=== PATIENT | female | born 1955 | race Hispanic/Latino ===

== ENCOUNTER 2020-05-14 11:37 | Inpatient (IN) | payer MEDICAID, OTHER ==
[~2020-05-14] VITALS: Ht 154.9 cm; Wt 87.9 kg
[2020-05-14 12:08] LABS: BASOPHILS % (AUTO) 0.4 % (0.0-5.0); EOSINOPHILS % (AUTO) 3.4 % (0.0-8.0); HEMATOCRIT 36.5 % (36-48); LYMPHOCYTES % (AUTO) 38.6 % (21.0-51.0); MEAN CORPUSCULAR HEMOGLOBIN 30.2 pg (27.0-33.0); MEAN CORPUSCULAR HGB CONC 33.7 g/dL (32.0-36.0); MEAN CORPUSCULAR VOLUME 89.7 fL (79-99); NEUTROPHILS % (AUTO) 51.4 % (40.0-77.0); PLATELET COUNT (AUTO) 157 K/uL (130-400); RED BLOOD CELL COUNT(AUTO) 4.07 MIL/uL (4.00-5.50); RED CELL DISTRIBUTION WIDTH 12.2 % (11.0-15.5); WHITE BLOOD COUNT (AUTO) 4.7 K/uL (4.8-10.8)
[2020-05-14 12:22] LABS: INR 1.03 (0.85-1.15); PROTHROMBIN TIME 11.2 SEC (9.6-11.6)
[2020-05-14] MEDS ORDERED: MAG/ALUM/SIMETH 30 ML UDCUP ONE (12:29)
[2020-05-14] MEDS ORDERED: LIDOCAINE HCL 2% VISCOUS 15 ML UDCUP ONE (12:29)
[2020-05-14] MEDS ORDERED: ASPIRIN 325 MG TABLET ONE (12:30)
[2020-05-14] MEDS ORDERED: ONDANSETRON 4MG INJ ONE (12:30)
[2020-05-14] MEDS ORDERED: MORPHINE 4 MG SYG ONE (12:30)
[2020-05-14] MEDS ORDERED: NITROGLYCERIN 0.4 MG SL TAB SL ONE ×2 (12:34→16:50)
[2020-05-14 12:37] LABS: CREATINE KINASE, TOTAL 189 U/L (21-232); CREATININE 0.6 mg/dL (0.5-1.5); LIPASE 85 U/L (114-286); POTASSIUM 3.9 mmol/L (3.5-5.1)
[2020-05-14 12:46] LABS: ALBUMIN 3.8 g/dL (3.5-5.0); BILIRUBIN,TOTAL 0.5 mg/dL (0.2-1.0); TOTAL PROTEIN, SERUM 7.5 g/dL (6.0-8.3)
[2020-05-14] MEDS ORDERED: ACETAMINOPHEN 325 MG TAB PO PRN ×2 (14:00)
[2020-05-14] MEDS ORDERED: LACTULOSE 20 GM/30 ML UDCUP PO PRN (14:00)
[2020-05-14] MEDS ORDERED: ONDANSETRON 4MG INJ IV PRN (14:00)
[2020-05-14] MEDS ORDERED: NITROGLYCERIN 0.4 MG SL TAB SL PRN (14:00)
[2020-05-14] MEDS ORDERED: MORPHINE 2 MG SYG IV PRN (14:00)
[2020-05-14 14:17] LABS: HEMOGLOBIN A1C 7.8 % (4.0-6.0)
[2020-05-14 14:28] LABS: THYROID STIMULATING HORMONE 1.86 uIU/mL (0.36-3.74)
[2020-05-14] MEDS: INSULIN HUMULIN R 100 UNIT/ML 3ML SQ SCH ×2 (16:30→21:00)
[2020-05-14] MEDS ORDERED: MORPHINE 2 MG SYG ONE (16:45)
[2020-05-14] MEDS: METOPROLOL TARTRATE 25 MG TAB PO SCH (21:00)
[2020-05-14] MEDS: FAMOTIDINE 20MG TAB PO SCH (21:00)
[2020-05-14] MEDS: ATORVASTATIN 20 MG TABLET PO SCH (21:00)
[2020-05-14 21:09] LABS: APPEARANCE,URINE Clear (CLEAR); BILIRUBIN,URINE Negative (NEGATIVE); COLOR,URINE Yellow (YELLOW); GLUCOSE, URINE (UA) Negative (NEGATIVE); KETONES,URINE Negative (NEGATIVE); LEUKOCYTE ESTERASE ,URINE Negative (NEGATIVE); NITRATE,URINE Negative (NEGATIVE); OCCULT BLOOD,URINE Negative (NEGATIVE); PROTEIN,URINE Negative (NEGATIVE)
[2020-05-14] MEDS ORDERED: FAMOTIDINE 20MG TAB ONE (22:01)
[2020-05-14] MEDS ORDERED: ATORVASTATIN 20 MG TABLET ONE (22:01)
[2020-05-15] MEDS ORDERED: PROCHLORPERAZINE 10MG/2ML INJ ONE (02:17)
[2020-05-15 06:05] LABS: BASOPHILS % (AUTO) 0.2 % (0.0-5.0); EOSINOPHILS % (AUTO) 3.5 % (0.0-8.0); HEMATOCRIT 35.1 % (36-48); LYMPHOCYTES % (AUTO) 38.4 % (21.0-51.0); MEAN CORPUSCULAR VOLUME 90.7 fL (79-99); MONOCYTES % (AUTO) 7.2 % (3.0-13.0); NEUTROPHILS % (AUTO) 50.5 % (40.0-77.0); PLATELET COUNT (AUTO) 143 K/uL (130-400); RED BLOOD CELL COUNT(AUTO) 3.87 MIL/uL (4.00-5.50); RED CELL DISTRIBUTION WIDTH 12.4 % (11.0-15.5)
[2020-05-15 06:29] LABS: CREATININE 0.6 mg/dL (0.5-1.5); POTASSIUM 3.8 mmol/L (3.5-5.1)
[2020-05-15] MEDS: INSULIN HUMULIN R 100 UNIT/ML 3ML SQ SCH ×4 (07:30→21:00)
[2020-05-15] MEDS ORDERED: ASPIRIN 81MG CHEW TAB ONE (07:43)
[2020-05-15] MEDS ORDERED: METOPROLOL TARTRATE 25 MG TAB ONE ×3 (07:44→20:22)
[2020-05-15] MEDS ORDERED: FAMOTIDINE 20MG TAB ONE ×3 (07:44→20:21)
[2020-05-15] MEDS ORDERED: ENOXAPARIN SODIUM 40 MG/0.4 ML SYRINGE SQ ONE (07:44)
[2020-05-15] MEDS ORDERED: MORPHINE 2 MG SYG ONE (07:53)
[2020-05-15] MEDS ORDERED: ONDANSETRON 4MG INJ ONE (07:53)
[2020-05-15] MEDS: FAMOTIDINE 20MG TAB PO SCH ×2 (09:00→21:00)
[2020-05-15] MEDS: METOPROLOL TARTRATE 25 MG TAB PO SCH ×2 (09:00→21:00)
[2020-05-15] MEDS: ENOXAPARIN SODIUM 40 MG/0.4 ML SYRINGE SQ SCH (09:00)
[2020-05-15] MEDS: ASPIRIN 325 MG TABLET PO SCH (09:00)
[2020-05-15] MEDS ORDERED: ACETAMINOPHEN 325 MG TAB ONE (12:13)
[2020-05-15] MEDS ORDERED: INSULIN HUMULIN R 100 UNIT/ML 3ML ONE ×2 (12:14→17:26)
[2020-05-15] MEDS ORDERED: ATORVASTATIN 20 MG TABLET ONE ×2 (20:19→20:21)
[2020-05-15] MEDS: ATORVASTATIN 20 MG TABLET PO SCH (21:00)
[2020-05-16 00:52] VITALS: BP 122/38
[2020-05-16 04:34] VITALS: BP 109/42
[2020-05-16] MEDS: INSULIN HUMULIN R 100 UNIT/ML 3ML SQ SCH ×4 (05:48→19:53)
[2020-05-16 06:11] LABS: BASOPHILS % (AUTO) 0.2 % (0.0-5.0); EOSINOPHILS % (AUTO) 2.9 % (0.0-8.0); HEMATOCRIT 38.1 % (36-48); LYMPHOCYTES % (AUTO) 39.6 % (21.0-51.0); MEAN CORPUSCULAR HEMOGLOBIN 30.6 pg (27.0-33.0); MEAN CORPUSCULAR HGB CONC 34.1 g/dL (32.0-36.0); MEAN CORPUSCULAR VOLUME 89.6 fL (79-99); MONOCYTES % (AUTO) 5.9 % (3.0-13.0); NEUTROPHILS % (AUTO) 51.2 % (40.0-77.0); PLATELET COUNT (AUTO) 148 K/uL (130-400); RED BLOOD CELL COUNT(AUTO) 4.25 MIL/uL (4.00-5.50); RED CELL DISTRIBUTION WIDTH 12.2 % (11.0-15.5); WHITE BLOOD COUNT (AUTO) 4.9 K/uL (4.8-10.8)
[2020-05-16 06:20] LABS: CREATININE 0.6 mg/dL (0.5-1.5)
[2020-05-16 08:00] VITALS: BP 121/35
[2020-05-16] MEDS ORDERED: LOSA25TA41 PO (08:00)
[2020-05-16] MEDS ORDERED: METF-527 PO (08:00)
[2020-05-16] MEDS ORDERED: PANT40TA PO (08:00)
[2020-05-16] MEDS ORDERED: GLIP10TA PO (08:01)
[2020-05-16] MEDS ORDERED: GABA-529 PO (08:01)
[2020-05-16] MEDS ORDERED: TRAZ-185 PO (08:03)
[2020-05-16] MEDS ORDERED: NITR0.4T50 SL (08:03)
[2020-05-16] MEDS ORDERED: ISOS30TA92 PO (08:03)
[2020-05-16] MEDS ORDERED: ROSU40TA21 PO (08:03)
[2020-05-16] MEDS ORDERED: ASPIRIN 81 MG EC TAB ONE (08:13)
[2020-05-16] MEDS: METOPROLOL TARTRATE 25 MG TAB PO SCH ×2 (08:19→19:45)
[2020-05-16] MEDS: FAMOTIDINE 20MG TAB PO SCH ×2 (08:20→19:45)
[2020-05-16] MEDS: ENOXAPARIN SODIUM 40 MG/0.4 ML SYRINGE SQ SCH (08:20)
[2020-05-16] MEDS: ASPIRIN 325 MG TABLET PO SCH (09:00)
[2020-05-16] MEDS ORDERED: REGADENOSON 0.4 MG/5 ML PF SYG IVP SCH (10:00)
[2020-05-16 12:00] VITALS: BP 114/47
[2020-05-16 17:00] VITALS: BP 128/57
[2020-05-16] MEDS: ATORVASTATIN 20 MG TABLET PO SCH (19:45)
[2020-05-16 20:16] VITALS: BP 126/47
[2020-05-16] MEDS ORDERED: ASPI-1197 PO (20:39)
[2020-05-16] MEDS ORDERED: TRAZODONE HCL 50 MG TAB PO PRN (20:45)
[2020-05-16] MEDS ORDERED: NITROGLYCERIN 0.4 MG SL TAB SL SCH (20:45)
[2020-05-16] MEDS ORDERED: NON-FORMULARY MEDICATION 1 EACH (Rosuvastatin Calcium 40 MG) PO SCH (21:00)
[2020-05-16] MEDS ORDERED: GABAPENTIN 100 MG CAPSULE PO SCH (21:20)
[2020-05-17] MEDS ORDERED: METFORMIN HCL 500 MG TABLET PO SCH (08:00)
[2020-05-17] MEDS ORDERED: GLIPIZIDE XL 10MG TAB PO SCH (08:00)
[2020-05-17] MEDS ORDERED: PANTOPRAZOLE 40 MG TAB DR PO SCH (09:00)
[2020-05-17] MEDS ORDERED: LOSARTAN 25 MG TABLET PO SCH (09:00)
[2020-05-17] MEDS ORDERED: ISOSORBIDE MONO 30MG SR TAB PO SCH (09:00)
== END 2020-05-16 21:50 | disposition home or self-care (01) | DRG 303 ==
LOC: EDH 11:37 → OBSVTOIN 11:38 → EDHIP 11:38 → 4AH 05-16 00:25
PROVIDERS: ADMIT Family Medicine; ATTEND Family Medicine
DX: I25.110 Atherosclerotic heart disease of native coronary artery with unstable angina pectoris (principal); I10 Essential (primary) hypertension; E11.9 Type 2 diabetes mellitus without complications; E78.5 Hyperlipidemia, unspecified; M19.90 Unspecified osteoarthritis, unspecified site; K21.9 Gastro-esophageal reflux disease without esophagitis; Z90.710 Acquired absence of both cervix and uterus; Z90.49 Acquired absence of other specified parts of digestive tract; Z83.3 Family history of diabetes mellitus; Z82.49 Family history of ischemic heart disease and other diseases of the circulatory system
CPT/HCPCS: 36415; 71045; 78452; 80048; 80053; 80061; 81003; 82550; 82948; 83036; 83690; 83735; 83880; 84443; 84484; 85025; 85610; 85730; 93005; 93017; 96374; A9500; G0378; J0780; J1650; J1815; J2270; J2405; J2785

== ENCOUNTER 2022-03-31 05:44 | Day surgery (SDC) | payer OTHER ==
[2022-03-27 09:02] LABS: BASOPHILS % (AUTO) 0.3 % (0.0-5.0); HEMATOCRIT 36.5 % (36-48); LYMPHOCYTES % (AUTO) 37.6 % (21.0-51.0); MEAN CORPUSCULAR HGB CONC 32.6 g/dL (32.0-36.0); MEAN CORPUSCULAR VOLUME 91.9 fL (79-99); MONOCYTES % (AUTO) 8.9 % (3.0-13.0); NEUTROPHILS % (AUTO) 50.2 % (40.0-77.0); PLATELET COUNT (AUTO) 116 K/uL (130-400); RED BLOOD CELL COUNT(AUTO) 3.97 MIL/uL (4.00-5.50); RED CELL DISTRIBUTION WIDTH 12.3 % (11.0-15.5); WHITE BLOOD COUNT (AUTO) 3.7 K/uL (4.8-10.8)
[2022-03-27 09:12] LABS: INR 0.95 (0.85-1.15); PROTHROMBIN TIME 10.4 SEC (9.6-11.6)
[2022-03-27 09:14] LABS: PARTIAL THROMBOPLASTIN TIME 27.8 SEC (26.3-35.5)
[2022-03-27 09:15] LABS: CREATININE 0.7 mg/dL (0.5-1.5); POTASSIUM 4.4 mmol/L (3.5-5.1)
[2022-03-27 09:16] LABS: APPEARANCE,URINE CLEAR (CLEAR); BILIRUBIN,URINE NEGATIVE (NEGATIVE); COLOR,URINE LIGHT-YELLOW (YELLOW); GLUCOSE, URINE (UA) >=1000 mg/dL (NEGATIVE); KETONES,URINE NEGATIVE (NEGATIVE); LEUKOCYTE ESTERASE ,URINE NEGATIVE Leu/uL (NEGATIVE); NITRATE,URINE NEGATIVE (NEGATIVE); OCCULT BLOOD,URINE NEGATIVE (NEGATIVE); PROTEIN,URINE 10 mg/dL (NEGATIVE); UROBILINOGEN,URINE 0.2 mg/dL (0.2-1.0)
[2022-03-27 09:18] VITALS: BP 143/62
[2022-03-27 09:18] LABS: RBC,URINE 0-1 /HPF (0-1); SQUAMOUS EPITHELIAL CELL,UR FEW /HPF (0-2)
[2022-03-27 09:22] LABS: B-TYPE NATRIURETIC PEPTIDE 10 pg/mL (0-100)
[2022-03-31] VITALS (15 sets, daily range): BP systolic 112–142; BP diastolic 51–64
[~2022-03-31] VITALS: Ht 154.9 cm; Wt 82.5 kg
[~2022-03-31 05:44] MED LIST: 0.9% NACL 500ML IV.SOLN 500 ML IV SCH; ACET-2521 PO; ASPI-1197 PO; BACL20TA PO; CHOL400C9 PO; GABA300C PO; GLIP10TA PO; ISOS30TA92 PO; LOSA25TA41 PO; MELO-108 PO; METF-527 PO; PRAM0.129 PO; ROSU40TA21 PO; invokana PO
[2022-03-31] MEDS ORDERED: 0.9%NACL 1000ML 1,000 ML IV ONE (06:21)
[2022-03-31] MEDS ORDERED: NITROGLYCERIN 50MG VIAL ONE (07:09)
[2022-03-31] MEDS ORDERED: VERAPAMIL HCL 2.5 MG/ML VIAL ONE (07:09)
[2022-03-31] MEDS ORDERED: HEPARIN 10,000 UNIT/10ML (1,000 UNIT/ML) VIAL ONE (07:09)
[2022-03-31] MEDS ORDERED: MIDAZOLAM HCL 1 MG/ML 2ML VIAL ONE ×2 (07:09→07:55)
[2022-03-31] MEDS ORDERED: IOHEXOL 350 MG/ML 100ML INFUS..BTL IV ONE (07:09)
[2022-03-31] MEDS ORDERED: FENTANYL CITRATE PF 50 MCG/1 ML 2ML VIAL ONE (07:10)
[2022-03-31] MEDS ORDERED: LIDOCAINE HCL 400MG/20ML VIAL ONE (07:10)
[2022-03-31] MEDS ORDERED: GLUCAGON 1MG KIT 1 MG ML IM PRN (08:30)
[2022-03-31] MEDS ORDERED: DEXTROSE 50%-WATER 50 ML DISP.SYRIN IV PRN (08:30)
== END 2022-03-31 12:00 | disposition home or self-care (01) ==
LOC: DAH 05:44
PROVIDERS: ATTEND Student in an Organized Health Care Education/Training Program
DX: R07.9 Chest pain, unspecified (principal); I20.8 Other forms of angina pectoris; E11.9 Type 2 diabetes mellitus without complications; I10 Essential (primary) hypertension; E78.5 Hyperlipidemia, unspecified; F20.89 Other schizophrenia; E66.01 Morbid (severe) obesity due to excess calories; Z79.84 Long term (current) use of oral hypoglycemic drugs; Z79.82 Long term (current) use of aspirin; Z79.899 Other long term (current) drug therapy; Z98.890 Other specified postprocedural states; Z68.34 Body mass index [BMI] 34.0-34.9, adult; Z90.49 Acquired absence of other specified parts of digestive tract
CPT/HCPCS: 80048; 83880; 85025; 85610; 85730; 81001; 36415; 71045; 93005; 93458; 82948 ×2; A4223 ×3; C1769; C1894 ×2; Q9965 ×2; J3010; J3490 ×3; J7030; J1644 ×2; J2250 ×2; Q9967; A4215; A4222; A6260; A4221; A4663; A4216; A6206; A4606; 99156; 99157

== ENCOUNTER → 2022-05-29 | Outpatient (CLI) | payer OTHER ==
[~2022-05-29] MED LIST changes: -0.9% NACL 500ML IV.SOLN 500 ML IV SCH
== END | disposition home or self-care (01) ==
LOC: SHCH 08:05
PROVIDERS: ATTEND Student in an Organized Health Care Education/Training Program
DX: I73.9 Peripheral vascular disease, unspecified (principal)
CPT/HCPCS: 93925

== ENCOUNTER → 2022-07-28 | Outpatient (CLI) | payer OTHER ==
[2022-07-28 16:38] LABS: CREATININE 0.7 mg/dL (0.5-1.5); POTASSIUM 3.5 mmol/L (3.5-5.1)
== END | disposition home or self-care (01) ==
LOC: LAB 13:57
PROVIDERS: ATTEND Student in an Organized Health Care Education/Training Program
DX: I10 Essential (primary) hypertension (principal)
CPT/HCPCS: 36415; 80048

== ENCOUNTER → 2022-08-06 | Outpatient (CLI) | payer OTHER ==
[~2022-08-06] MED LIST changes: +IOHEXOL 350 MG/ML 100ML INFUS..BTL IV ONE
== END | disposition home or self-care (01) ==
LOC: RAH 10:55
PROVIDERS: ATTEND Student in an Organized Health Care Education/Training Program
DX: R07.9 Chest pain, unspecified (principal)
CPT/HCPCS: 75574; Q9967

== ENCOUNTER 2023-11-10 07:47 | Day surgery (SDC) | payer OTHER ==
[2023-11-06 09:49] LABS: BASOPHILS # (AUTO) 0.02 K/uL (0.00-0.20); BASOPHILS % (AUTO) 0.4 % (0.0-5.0); EOSINOPHILS # (AUTO) 0.09 K/uL (0.00-0.70); EOSINOPHILS % (AUTO) 1.8 % (0.0-8.0); IMMATURE GRANULOCYTE ABSOLUTE 0.01 K/uL (0-1); LYMPHOCYTES # (AUTO) 1.7 K/uL (1.0-4.8); LYMPHOCYTES % (AUTO) 34.7 % (21.0-51.0); MEAN CORPUSCULAR HEMOGLOBIN 29.6 pg (27.0-33.0); MEAN CORPUSCULAR HGB CONC 33.2 g/dL (32.0-36.0); MEAN CORPUSCULAR VOLUME 89.2 fL (79-99); MONOCYTES # (AUTO) 0.3 K/uL (0.1-1.0); MONOCYTES % (AUTO) 5.2 % (3.0-13.0); NEUTROPHILS # (AUTO) 2.9 K/uL (1.8-7.7); NEUTROPHILS % (AUTO) 57.7 % (40.0-77.0); PLATELET COUNT (AUTO) 140 K/uL (130-400); RED BLOOD CELL COUNT(AUTO) 4.15 MIL/uL (4.00-5.50); RED CELL DISTRIBUTION WIDTH 12.4 % (11.0-15.5)
[2023-11-06 09:56] LABS: CREATININE 0.7 mg/dL (0.5-1.0); POTASSIUM 4.2 mmol/L (3.5-5.1)
[2023-11-06 09:58] LABS: INR 1.02 (0.85-1.15)
[2023-11-06 09:59] LABS: PARTIAL THROMBOPLASTIN TIME 27.5 SEC (26.3-35.5)
[2023-11-06 10:10] VITALS: BP 178/63; PULSE 63; RESP 18; TEMP 97.8
[~2023-11-10] VITALS: Ht 154.9 cm; Wt 83.0 kg
[2023-11-10] VITALS (8 sets, daily range): BP systolic 136–156; BP diastolic 58–80; PULSE 12–87; RESP 12–17; TEMP 97.4–97.9
[~2023-11-10 07:47] MED LIST changes: -BACL20TA PO; +CHOL10CA2 PO; -CHOL400C9 PO; +EMPA25TA PO; -GABA300C PO; -GLIP10TA PO; -IOHEXOL 350 MG/ML 100ML INFUS..BTL IV ONE; -ISOS30TA92 PO; -LOSA25TA41 PO; -MELO-108 PO; +METO-408 PO; +PANT40TA54 PO; +PROP325C17 PO; -ROSU40TA21 PO; +ROSU40TA88 PO; +SERT-438 PO; +SUMA25TA9 PO; -invokana PO
[2023-11-10] MEDS: 0.9%NACL 1000ML 1,000 ML IV ONE (08:26)
[2023-11-10] MEDS ORDERED: LIDOCAINE HCL 400MG/20ML VIAL ONE ×2 (11:10→11:13)
[2023-11-10] MEDS ORDERED: MIDAZOLAM HCL 1 MG/ML 2ML VIAL ONE ×4 (11:11→13:00)
[2023-11-10] MEDS ORDERED: HEParin 10,000 UNIT/10ML (1,000 UNIT/ML) VIAL ONE (11:11)
[2023-11-10] MEDS ORDERED: MEPERIDINE-PF 25 MG/ML SYG ONE ×4 (11:11→13:00)
[2023-11-10] MEDS ORDERED: HEParin-NS 1,000 UNIT/500 ML 500 ML IV ONE ×2 (11:13→11:45)
[2023-11-10] MEDS ORDERED: ISOPROTERENOL HCL 0.2 MG/ML AMP/VIAL/BAG ONE (11:27)
[2023-11-10] MEDS ORDERED: VERA180T61 PO (14:48)
[2023-11-10] MEDS ORDERED: VERAPAMIL HCL 80 MG TABLET PO SCH (15:00)
== END 2023-11-10 16:55 | disposition home or self-care (01) ==
LOC: DAH 07:47
PROVIDERS: ATTEND Internal Medicine Cardiovascular Disease
DX: I47.10 Supraventricular tachycardia, unspecified (principal); I10 Essential (primary) hypertension; E11.9 Type 2 diabetes mellitus without complications; E78.5 Hyperlipidemia, unspecified; K21.9 Gastro-esophageal reflux disease without esophagitis; I25.10 Atherosclerotic heart disease of native coronary artery without angina pectoris; F20.9 Schizophrenia, unspecified; Z79.82 Long term (current) use of aspirin; Z79.84 Long term (current) use of oral hypoglycemic drugs; Z90.49 Acquired absence of other specified parts of digestive tract; Z98.890 Other specified postprocedural states; Z79.01 Long term (current) use of anticoagulants; Z79.899 Other long term (current) drug therapy
CPT/HCPCS: 80048; 85025; 85610; 85730; 36415; 93620; 93623; 93613; 93621; 82948 ×2; 93005; C1732 ×3; C1730 ×3; A4649 ×2; J3490 ×3; J7030; J1644 ×3; J2250 ×4; J2175 ×4; A4215; A4222; A4221; A4663; A4216; A4606; C1894 ×7; A4223 ×3; 99156; 99157

== ENCOUNTER → 2024-07-01 | Outpatient (CLI) | payer OTHER ==
[~2024-07-01] MED LIST changes: -PROP325C17 PO; +VERA180T61 PO
[2024-07-01 11:48] LABS: BILIRUBIN,TOTAL 0.4 mg/dL (0.2-1.0); CREATININE 0.7 mg/dL (0.5-1.0); POTASSIUM 4.5 mmol/L (3.5-5.1); TOTAL PROTEIN, SERUM 7.4 g/dL (6.0-8.3)
== END | disposition home or self-care (01) ==
LOC: RAH 11:05
PROVIDERS: ATTEND Student in an Organized Health Care Education/Training Program
DX: I10 Essential (primary) hypertension (principal); R07.9 Chest pain, unspecified
CPT/HCPCS: 36415; 80053

== ENCOUNTER → 2024-07-05 | Outpatient (CLI) | payer OTHER ==
[~2024-07-05] MED LIST changes: +IOHEXOL 350 MG/ML 100ML INFUS..BTL IV ONE; +metoPROLOL tartRATE 1 MG/ML 5ML VIAL IV ONE
--- NOTE | 2024-07-05 11:49 | HMCIMG ---
CT CARDIAC ANGIO W/CONT. CCTA HISTORY: Chest pain COMPARISON: 08/06/2022 TECHNIQUE: Multiple sequential axial images of the chest were obtained along with the CT angiogram of the chest study. Patient was given 100 cc of Omnipaque through intravenous route. FINDINGS: There is no evidence of pulmonary nodule or parenchymal disease. No pleural effusion or pericardial effusion is seen. There is no evidence of pneumothorax. There are normal size mediastinal and hilar lymph nodes. The heart is not enlarged. Degenerative changes of the thoracolumbar spine are present. IMPRESSION: 1. No evidence of pulmonary nodule or effusion is seen. Please see CT angiogram report of coronary arteries.
== END | disposition home or self-care (01) ==
LOC: RAH 09:41
PROVIDERS: ATTEND Student in an Organized Health Care Education/Training Program
DX: R07.9 Chest pain, unspecified (principal); M47.815 Spondylosis without myelopathy or radiculopathy, thoracolumbar region
CPT/HCPCS: 75574; J3490; Q9967

== ENCOUNTER 2024-08-11 16:25 | Emergency (ER) | payer OTHER ==
[~2024-08-11] VITALS: Ht 157.5 cm; Wt 76.2 kg
[~2024-08-11 16:25] MED LIST changes: -IOHEXOL 350 MG/ML 100ML INFUS..BTL IV ONE; -metoPROLOL tartRATE 1 MG/ML 5ML VIAL IV ONE
--- NOTE | 2024-08-11 16:38 | ERN ---
General Chief Complaint: Chest Pain Stated Complaint: CHEST PAIN Time Seen by MD: 16:26 Source: patient History of Present Illness Initial Comments PATIENT IS A 68-YEAR-OLD FEMALE COMING IN TO BE EVALUATED FOR EPIGASTRIC AND MID CHEST PAIN. PER PATIENT SHE HAS BEEN HAVING THESE SYMPTOMS FOR THREE DAYS. SHE ALSO STATES THAT SHE DOES HAVE A CARDIAC HISTORY. Allergies: Coded Allergies: No Known Allergies (Verified Allergy, Unknown, 05/14/20) Home Meds Active Scripts Verapamil HCl (Verapamil ER 180Mg Tab) 180 Mg Tablet.er, 180 MG PO DAILY, #30 TAB 3 Refills Prov:KAROLINE BARTHOLOMEW MD 11/10/23 Aspirin (Aspirin) 81 Mg Tab.chew, 81 MG PO DAILY for 30 Days, #30 TAB.CHEW Prov:CARLOS BERMUDEZ MD 05/16/20 Reported Medications Empagliflozin (Jardiance) 25 Mg Tablet, 25 MG PO DAILY, TAB 11/06/23 Sertraline HCl (Sertraline HCl) 25 Mg Tablet, 25 MG PO DAILY, TAB 11/06/23 Metoprolol Succinate (Metoprolol Succinate) 25 Mg Tab.er.24h, 25 MG PO DAILY, TAB 11/06/23 Pantoprazole Sodium (Pantoprazole Sodium) 40 Mg Tablet.dr, 40 MG PO DAILY, TAB 11/06/23 Sumatriptan Succinate (Sumatriptan Succinate) 25 Mg Tablet, 25 MG PO BID PRN for HEADACHE, TAB 11/06/23 Acetaminophen (Arthritis Pain Relief) 650 Mg Tablet.er, 650 MG PO BID PRN for PAIN, TAB 03/27/22 Cholecalciferol (Vitamin D3) (Vitamin D3) 10 Mcg Capsule, 10 MCG PO AM, CAP 03/27/22 Pramipexole Di-HCl (Pramipexole Dihydrochloride) 0.125 Mg Tablet, 0.125 MG PO HS, TAB 03/27/22 Rosuvastatin Calcium (Rosuvastatin Calcium) 40 Mg Tablet, 40 MG PO HS, TAB 05/16/20 Metformin HCl (Metformin HCl ER) 1,000 Mg Tab.er.24, 1000 MG PO BIDMEALS 05/16/20 Past Medical History Past Medical History: Diabetes-Type II, High Cholesterol, Hypertension Past Surgical History: Hysterectomy, Cholecystectomy, Other, Surgical History Other: CARDIAC CATH, HERNIA REPAIR ROS Dictation CONSTITUTIONAL: NO CHILLS, NO FEVER, NO WEAKNESS, NO DIAPHORESIS, NO MALAISE. HEAD/FACE: NO SIGNS OF TRAUMA. EENT: NO EYE PAIN, NO BLURRED VISION, NO TEARING, NO DOUBLE VISION, NO EAR PAIN, NO EAR DISCHARGE, NO NOSE PAIN, NO NASAL CONGESTION, NO THROAT PAIN, NO THROAT SWELLING, NO MOUTH PAIN. RESPIRATORY: NO COUGH, NO ORTHOPNEA, NO SOB, NO STRIDOR, NO WHEEZING. CARDIOVASCULAR: CHEST PAIN, NO EDEMA, NO PALPITATIONS, NO SYNCOPE. GASTROINTESTINAL/ABDOMINAL: NO ABDOMINAL PAIN, NO CONSTIPATION, NO DIARRHEA, NO NAUSEA, NO VOMITING. GENITOURINARY: NO ABNORMAL DISCHARGE, NO DYSURIA, NO FREQUENT URINATION, NO HEMATURIA. NO COMPLAINTS OF PAIN IN THE GENITALS. MUSCULOSKELETAL: NO BACK PAIN, NO GOUT, NO JOINT PAIN, NO JOINT SWELLING, NO MUSCLE PAIN, NO MUSCLE STIFFNESS, NO NECK PAIN. INTEGUMENTARY: NO CHANGE IN COLOR, NO CHANGE IN HAIR/NAILS, NO DRYNESS, NO LESION, NO LUMPS, NO RASH. NEUROLOGICAL/PSYCH: NO ANXIETY, NOT DEPRESSED, NO EMOTIONAL PROBLEM, NO HEADACHE, NO NUMBNESS, NO PRE-EXISTING DEFICIT, NO HISTORY OF SEIZURES, NO TREMORS, NO WEAKNESS. HEMATOLOGIC/LYMPHATIC: NOT ANEMIC, NO HISTORY OF BLOOD CLOTS, NO APPARENT BLEEDING, NO BRUISING, GLANDS NOT SWOLLEN. ALL SYSTEMS NEGATIVE, EXCEPT NOTED. Physical Exam Physical Exam Dictation VITAL SIGNS: REVIEWED. GENERAL APPEARANCE: ALERT, ORIENTED X3, NO ACUTE DISTRESS, OBESE. HEAD AND FACE: NON-TRAUMATIC. EYES: PERRL, PINK CONJUNCTIVAS, EYELID NO TRAUMA, ANTERIOR CHAMBER CLEAR. EARS: PINNAS INTACT AND NO SIGNS OF TRAUMA OR ERYTHEMA. EAR CANALS CLEAR AND NO DISCHARGE. TMS NO ERYTHEMA. NOSE: NO DISCHARGE, NO BLEEDING. OROPHARYNX: MOUTH NORMAL, TEETH NO CARIES, TONGUE PINK. PHARYNX CLEAR, NO ERYTHEMA. TONSILS NO EXUDATES, NO ABSCESSES NOTED. MUCOUS MEMBRANE MOIST. NECK: SUPPLE, NON-TENDER, NO THYROMEGALY, NO MASSES, NO JVD, NO BRUITS. BREAST: DEFERRED. CHEST: NO TENDERNESS, NO CREPITUS, NO PARADOXICAL MOVEMENT, NO RETRACTIONS. LUNGS: CLEAR, WELL-VENTILATED, SYMMETRIC, NO RALES, NO WHEEZING, NO RHONCHI, NO STRIDOR, GOOD BREATH SOUNDS BILATERALLY. HEART: REGULAR RATE, REGULAR RHYTHM, NO MURMUR, NO GALLOPS. VASCULAR: NO PERIPHERAL EDEMA. ABDOMEN: SOFT, POSITIVE BOWEL SOUNDS, NONDISTENDED, NO GUARDING, NONTENDER, NO REBOUND, NO MASSES NO HEPATOMEGALY, NO SPLENOMEGALY, NO FRANCISCO'S SIGN, NO HERNIAS. RECTAL: DEFERRED. GENITAL: DEFERRED. NEUROLOGICAL: NORMAL SPEECH, GROSS MOTOR FUNCTION INTACT, GROSS SENSORY FUNCTION INTACT. MUSCULOSKELETAL: NECK NONTENDER, FULL RANGE OF MOTION, BACK NONTENDER, FULL RANGE OF MOTION. EXTREMITIES: NONTENDER, FULL RANGE OF MOTION. SKIN: COLOR PINK, DRY, NO TURGOR, NO RASH, NO LACERATIONS, NO ABRASIONS, NO CONTUSIONS. LYMPHATICS: DEFERRED. Results Laboratory and Microbiology Lab and Micro Result Laboratory Tests Test 08/11/24 16:55 08/11/24 18:00 08/11/24 19:20 White Blood Count 6.4 K/uL (4.8-10.8) Red Blood Count 4.57 MIL/uL (4.00-5.50) Hemoglobin 13.9 g/dL (12.0-16.0) Hematocrit 39.8 % (36-48) Mean Corpuscular Volume 87.1 fL (79-99) Mean Corpuscular Hemoglobin 30.4 pg (27.0-33.0) Mean Corpuscular Hemoglobin Concent 34.9 g/dL (32.0-36.0) Red Cell Distribution Width 12.0 % (11.0-15.5) Platelet Count 159 K/uL (130-400) Mean Platelet Volume 12.2 fL (7.5-10.5) H Immature Granulocyte % (Auto) 0.2 % (0-1) Neutrophils (%) (Auto) 61.6 % (40.0-77.0) Lymphocytes (%) (Auto) 30.7 % (21.0-51.0) Monocytes (%) (Auto) 5.8 % (3.0-13.0) Eosinophils (%) (Auto) 1.4 % (0.0-8.0) Basophils (%) (Auto) 0.3 % (0.0-5.0) Neutrophils # (Auto) 3.9 K/uL (1.8-7.7) Lymphocytes # (Auto) 2.0 K/uL (1.0-4.8) Monocytes # (Auto) 0.4 K/uL (0.1-1.0) Eosinophils # (Auto) 0.09 K/uL (0.00-0.70) Basophils # (Auto) 0.02 K/uL (0.00-0.20) Absolute Immature Granulocyte (auto 0.01 K/uL (0-1) Nucleated Red Blood Cells 0.0 % (0.0-0.19) Sodium Level 136 mmol/L (136-145) Potassium Level 3.2 mmol/L (3.5-5.1) L Chloride Level 96 mmol/L (101-111) L Carbon Dioxide Level 27 mmol/L (21-32) Blood Urea Nitrogen 12 mg/dL (7-18) Creatinine 0.7 mg/dL (0.5-1.0) Glomerular Filtration Rate Calc 94 mL/min (>90) Random Glucose 259 mg/dL (70-105) H Total Calcium 9.5 mg/dL (8.5-10.1) Magnesium Level 1.50 mg/dL (1.80-2.40) L Troponin I High Sensitivity 4 ng/L (4-50) < 4 ng/L (4-50) L Urine Color LIGHT-YELLOW (YELLOW) Urine Appearance CLEAR (CLEAR) Urine pH 5.5 (5.0-8.0) Urine Specific [place] 1.022 (1.001-1.031) Urine Protein NEGATIVE mg/dL (NEGATIVE) Urine Glucose (UA) >=1000 mg/dL (NEGATIVE) H Urine Ketones NEGATIVE mg/dL (NEGATIVE) Urine Occult Blood NEGATIVE (NEGATIVE) Urine Nitrate NEGATIVE (NEGATIVE) Urine Bilirubin NEGATIVE mg/dL (NEGATIVE) Urine Urobilinogen 0.2 mg/dL (0.2-1.0) Urine Leukocyte Esterase NEGATIVE Lisandra/uL Urine RBC 0-1 /HPF (0-1) Urine WBC 2-5 /HPF (0-1) H Urine Squamous Epithelial Cells RARE /HPF (0-2) Urine Bacteria None /HPF (None Seen) Labs Reviewed?: Yes EKG/XRAY/US/CT/MRI EKG Comment 08/11/2024 TIME 4:32 P.M. VENTRICULAR RATE 85 SINUS RHYTHM [place] [address] WAVE ELEVATION OR DEPRESSION X-RAY Comment [place] [address] [place] [id number] IMAGING REPORT Signed PATIENT: NANCY MOREJON MR#: [id number] : 1955 SEX: F AGE: 68 LOCATION: [facility] ORDER STATUS: REG ER REPORT#: [id number] SERVICE 34 REASON: CP ORDERING PHYSICIAN: RENE MARTINEZ MD PROCEDURE: CXR1VW - CHEST 1VW CHEST 1VW HISTORY: Chest pain COMPARISON: 03/27/2002 FINDINGS: A frontal projection of the chest was obtained. No acute pulmonary infiltrates is seen. The heart is normal in size. Prominent interstitial markings are seen. No evidence of aortic calcification is seen. IMPRESSION: 1. No acute pulmonary infiltrate is seen. DICTATED BY: ASIA KELLY MD DATE: 08/11/241717 ELECTRONICALLY SIGNED BY: ASIA KELLY MD DATE: 08/11/[address] [facility] MDM: DIFFERENTIAL DIAGNOSIS: RATIONALE: TESTS CONSIDERED AND ORDERED SECONDARY TO SHARED DECISION MAKING INCLUDE: PREVIOUS OUTSIDE RECORDS REVIEWED: OLD ER VISITS. RISK OF COMPLICATION AND/OR MORBIDITY OR MORTALITY OF PATIENT MANAGEMENT: NONE MEDICATIONS-PER MEDICATION RECONCILIATION NEED FOR HOSPITALIZATION: PATIENT DOES NOT MEET CRITERIA FOR HOSPITALIZATION. NEED FOR EMERGENCY MAJOR/MINOR SURGERY: NO THERE ARE NO SOCIAL CONCERNS WITH THIS PATIENT. PRESCRIPTION DRUG MANAGEMENT PRESCRIPTIONS WILL INCLUDE SYMPTOMATIC CARE PATIENT'S PRIOR EXTERNAL MEDICAL RECORDS FROM OTHER ER VISITS WERE REVIEWED BY ME INDICATED. PRIOR TESTING AND RESULTS FROM PREVIOUS VISITS WERE REVIEWED. PRIOR TESTS WERE TAKEN INTO ACCOUNT WITH MEDICAL DECISION MAKING AND RESOURCE UTILIZATION, INDEPENDENT HISTORIAN/HISTORIANS WERE USED TO OBTAIN COMPLETE MEDICAL HISTORY. I INDEPENDENTLY INTERPRETED THE TEST THAT WERE PERFORMED, RESULTS WERE REVIEWED BY ME AND CONSIDERED FINDINGS ON RADIOLOGY IF ORDERED. MEDICAL MANAGEMENT AND EXAMINATION INTERPRETATION DISCUSSIONS WERE HAD BY ME WITH OTHER QUALIFIED HEALTHCARE PROFESSIONALS INDICATED FOR THE PATIENT'S CARE. Patient had CT scan which shows severe constipation. Patient advised to take laxatives is and have daily bowel movements. Advised the patient to follow up with your primary care physician for continuance of care.. Patient verbalized understanding ED Course Orders Procedure Category Date Status Time Cbc With Differential LAB 08/11/24 Complete 16:35 Chest 1vw RAD 08/11/24 Resulted 16:35 12 Lead Ekg Tracing- EKG 08/11/24 Logged Technical 16:35 Magnesium LAB 08/11/24 Complete 16:35 Troponin I High LAB 08/11/24 Complete Sensitivity 16:35 Urinalysis Profile LAB 08/11/24 Complete 16:35 Basic Metabolic Panel LAB 08/11/24 Complete 16:35 Troponin I High LAB 08/11/24 Complete Sensitivity 18:46 Pantoprazole 40mg Inj PHA 08/11/24 Complete (Protonix 40mg Inj 19:00 Lidocaine Hcl 2% PHA 08/11/24 Complete Viscous (Lidocaine Hcl 19:00 Mag/Alum/Simeth 30ml PHA 08/11/24 Complete (Maalox Plus 30ml) 19:00 Dicyclomine Hcl PHA 08/11/24 Complete (Bentyl 10mg/5ml 19:00 Pantoprazole 40mg Tab PHA 08/11/24 Complete (Protonix 40mg Tab 19:00 0.9%Nacl 1000ml (Ns PHA 08/11/24 In Process 1000ml) 20:30 Potassium Chl 10% PHA 08/11/24 Complete Elixir 20meq (Kcl 10% 20:30 Ct Abdomen/Pelvis W/O CT 08/11/24 Resulted Contrast 20:25 Current Medications Medications (Trade) Dose Ordered Sig/Tiffanie Route PRN Reason Start Time Stop Time Status Last Admin Dose Admin Al Hydroxide/Mg Hydroxide (MAALox PLUS 30ML) 30 ml ONCE ONCE PO 08/11/24 19:00 08/11/24 19:01 DC 08/11/24 19:02 Dicyclomine HCl (Bentyl 10mg/5ml Syrup) 10 mg ONCE ONCE PO 08/11/24 19:00 08/11/24 19:01 DC 08/11/24 19:02 Lidocaine HCl (Lidocaine HCl 2% Viscous) 10 ml ONCE ONCE PO 08/11/24 19:00 08/11/24 19:01 DC 08/11/24 19:02 Pantoprazole Sodium (PROTonix 40MG INJ) 40 mg ONCE ONCE IVP 08/11/24 19:00 08/11/24 18:52 DC Pantoprazole Sodium (PROTonix 40MG TAB) 40 mg ONCE ONCE PO 08/11/24 19:00 08/11/24 19:00 DC Potassium Chloride (KCl 10% Elixir 20meq/15ml) 20 meq ONCE ONCE PO 08/11/24 20:30 08/11/24 20:31 DC 08/11/24 20:46 Sodium Chloride 1,002 ml @ 334 mls/hr ONCE ONCE IV 08/11/24 20:30 08/11/24 23:29 08/11/24 20:46 Vital Signs Date Time Temp Pulse Resp B/P (MAP) Pulse Ox O2 Delivery O2 Flow Rate FiO2 08/11/24 18:01 98.2 85 16 166/100 99 Room Air* 0 21 08/11/24 16:26 98.2 85 16 166/100 99 Room Air 0 DX & DISP Disposition: Discharge Departure Impression: Primary Impression: Constipation Additional Impression: GERD (gastroesophageal reflux disease) Condition: Stable Additional Instructions: With follow up with your primary care physician in the next 3-5 days. Please take laxative for daily bowel movements Referrals: MILADIS ROSADO (PCP) RENE MARTINEZ MD Aug 11, 2024 16:38 DANIA JOSEPH MD Aug 11, 2024 21:51
[2024-08-11 17:03] LABS: BASOPHILS # (AUTO) 0.02 K/uL (0.00-0.20); BASOPHILS % (AUTO) 0.3 % (0.0-5.0); EOSINOPHILS # (AUTO) 0.09 K/uL (0.00-0.70); EOSINOPHILS % (AUTO) 1.4 % (0.0-8.0); HEMATOCRIT 39.8 % (36-48); IMMATURE GRANULOCYTE ABSOLUTE 0.01 K/uL (0-1); LYMPHOCYTES % (AUTO) 30.7 % (21.0-51.0); MEAN CORPUSCULAR HEMOGLOBIN 30.4 pg (27.0-33.0); MEAN CORPUSCULAR HGB CONC 34.9 g/dL (32.0-36.0); MEAN CORPUSCULAR VOLUME 87.1 fL (79-99); MONOCYTES # (AUTO) 0.4 K/uL (0.1-1.0); MONOCYTES % (AUTO) 5.8 % (3.0-13.0); NEUTROPHILS # (AUTO) 3.9 K/uL (1.8-7.7); NEUTROPHILS % (AUTO) 61.6 % (40.0-77.0); PLATELET COUNT (AUTO) 159 K/uL (130-400); RED BLOOD CELL COUNT(AUTO) 4.57 MIL/uL (4.00-5.50); WHITE BLOOD COUNT (AUTO) 6.4 K/uL (4.8-10.8)
--- NOTE | 2024-08-11 17:21 | HMCIMG ---
CHEST 1VW HISTORY: Chest pain COMPARISON: 03/27/2002 FINDINGS: A frontal projection of the chest was obtained. No acute pulmonary infiltrates is seen. The heart is normal in size. Prominent interstitial markings are seen. No evidence of aortic calcification is seen. IMPRESSION: 1. No acute pulmonary infiltrate is seen.
[2024-08-11 17:23] LABS: CREATININE 0.7 mg/dL (0.5-1.0); POTASSIUM 3.2 mmol/L (3.5-5.1)
[2024-08-11 17:28] LABS: MAGNESIUM 1.5 mg/dL (1.80-2.40)
[2024-08-11 18:32] LABS: APPEARANCE,URINE CLEAR (CLEAR); BILIRUBIN,URINE NEGATIVE (NEGATIVE); COLOR,URINE LIGHT-YELLOW (YELLOW); GLUCOSE, URINE (UA) >=1000 mg/dL (NEGATIVE); KETONES,URINE NEGATIVE (NEGATIVE); LEUKOCYTE ESTERASE ,URINE NEGATIVE Leu/uL (NEGATIVE); NITRATE,URINE NEGATIVE (NEGATIVE); OCCULT BLOOD,URINE NEGATIVE (NEGATIVE); PH,URINE 5.5 (5.0-8.0); PROTEIN,URINE NEGATIVE (NEGATIVE); UROBILINOGEN,URINE 0.2 mg/dL (0.2-1.0)
[2024-08-11 18:33] LABS: ADD UA MICROSCOPIC YES
[2024-08-11 18:34] LABS: RBC,URINE 0-1 /HPF (0-1); SQUAMOUS EPITHELIAL CELL,UR RARE /HPF (0-2)
[2024-08-11] MEDS ORDERED: PANTOPrazole 40 MG TAB DR PO ONE (19:00)
[2024-08-11] MEDS ORDERED: PANTOPrazole 40 MG/VIAL IVP ONE (19:00)
[2024-08-11] MEDS: LIDOCAINE HCL 2% VISCOUS 15 ML UDCUP PO ONE (19:02)
[2024-08-11] MEDS: MAG/ALUM/SIMETH 30 ML UDCUP PO ONE (19:02)
[2024-08-11] MEDS: DICYCLOMINE HCL 10 MG/5 ML ML PO ONE (19:02)
[2024-08-11] MEDS: PoTASSium chl 10% ELIXIR 20MEQ 20 MEQ/15 ML UDCUP PO ONE (20:46)
[2024-08-11] MEDS: 0.9%NACL 1000ML 1,002 ML IV ONE (20:46)
--- NOTE | 2024-08-11 21:21 | HMCIMG ---
CT ABDOMEN/PELVIS W/O CONTRAST INDICATION: abdominal pain TECHNIQUE: CT ABDOMEN/PELVIS W/O CONTRAST. Oral contrast was not given. Coronal and sagittal reformats were performed. CT was performed with one or more of the following dose reduction techniques: Automated exposure control, adjustment of the mA and/or kV according to the patient's size, or use of the iterative reconstruction technique. Comparison: 07/05/2024 FINDINGS: The noncontrast nature this study limits evaluation of abdominal viscera. Mild atelectatic changes are seen in the lung bases. There is hepatic steatosis. Cholecystectomy changes are noted. Stable appearance of the spleen, pancreas and adrenal glands. No hydronephrosis. The urinary bladder is partially collapsed. Hysterectomy changes are seen. Postop changes of the abdominal wall hernia repair is noted. Prominent fecal material is seen in the colon suggestive of constipation. No bowel obstruction is seen. Appendix is normal in caliber. Atherosclerotic changes of the aorta with calcified plaques. Degenerative changes of the spine are seen. IMPRESSION: Constipation.
[2024-08-11 22:00] VITALS: BP 141/78; PULSE 80; RESP 16; TEMP 98.2; O2SAT 99
--- NOTE | 2024-08-12 06:42 | EKG ---
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
== END 2024-08-11 22:02 | disposition home or self-care (01) ==
LOC: EDH 16:25
DX: K59.00 Constipation, unspecified (principal); K21.9 Gastro-esophageal reflux disease without esophagitis; E11.9 Type 2 diabetes mellitus without complications; E78.00 Pure hypercholesterolemia, unspecified; I10 Essential (primary) hypertension; Z79.82 Long term (current) use of aspirin; Z79.84 Long term (current) use of oral hypoglycemic drugs; Z79.899 Other long term (current) drug therapy; Z90.49 Acquired absence of other specified parts of digestive tract; Z90.710 Acquired absence of both cervix and uterus; Z98.890 Other specified postprocedural states
CPT/HCPCS: 99285; 74176; 71045; 83735; 84484 ×2; 80048; 85025; 81001; 36415; 93005; J7030; 99284

== ENCOUNTER → 2024-10-12 | Outpatient (CLI) | payer OTHER ==
--- NOTE | 2024-10-13 07:31 | HMCIMG ---
EXAMINATION: ULTRASOUND OF THE THYROID. CLINICAL HISTORY: Pain. COMPARISON: None. TECHNIQUE: Transverse and longitudinal images were obtained through both lobes and the isthmus of the thyroid. FINDINGS: The thyroid gland is normal in caliber with homogenous tissue echotexture. The right thyroid lobe measures 3.2 x 1.4 x 1.2 cm and the left thyroid lobe measures 3.5 x 1.1 x 1.2 cm in the craniocaudal, AP, and transverse dimensions respectively. The isthmus measures 0.22 cm in AP dimension. Right lobe: There is a hypoechoic solid cystic nodule that measures 0.5 x 0.3 x 0.5 cm at the mid pole (TR3). There is a cystic nodule that measures 0.3 x 0.2 x 0.2 cm at the mid pole (TR1). There is a cystic nodule that measures 0.3 x 0.2 x 0.3 cm at the mid pole (TR1). Left lobe: There are no focal lesions. No significantly enlarged lymph nodes. IMPRESSION: Nodules in the right lobe of the thyroid. TI-RADS follow up recommendations: TR1: no FNA required TR2: no FNA required TR3: more than or equal to 1.5 cm follow up, more than or equal to 2.5 cm FNA follow up: 1, 3 and 5 years TR4: more than or equal to 1.0 cm follow up, more than or equal to 1.5 cm FNA follow up: 1, 2, 3 and 5 years TR5: more than or equal to 0.5 cm follow up, more than or equal to 1.0 cm FNA annual follow up for up to 5 years /[place]
== END | disposition home or self-care (01) ==
LOC: RAH 10:24
PROVIDERS: ATTEND Family Medicine
DX: E04.1 Nontoxic single thyroid nodule (principal); E07.9 Disorder of thyroid, unspecified
CPT/HCPCS: 76536